=== PATIENT | female | born 1990 | race Caucasian/White ===

== ENCOUNTER → 2017-05-21 09:40 | Observation (INO) ==
[2017-05-20] MEDS: D5LR 1,000 ML IV SCH (15:30)
[2017-05-20 15:46] VITALS: O2SAT 100
--- NOTE | 2017-05-20 19:56 | Progress Note ---
DAY OF ADMISSION: 05/20/2017 HISTORY This is a 26-year-old white female at 7.3 weeks gestational age who was seen in the office this morning by Lara Raya APRN, and Dr. Arana for hyperemesis. She is a patient of mine, well known to me. She has been on Zofran, promethazine and Reglan for hyperemesis so far this and has been in for fluids at least a couple of times. She got 2 liters in the infusion therapy area. Then I went over to see her and she still was feeling bad. She has had diarrhea the last day or two and then stopped her stool softener. On further questioning, her partner had a fever yesterday. The patient's temperature is 99.3. Her cheeks were flushed and she just did not look like she felt well and it looked like more than hyperemesis to me. I put her in as an overnight observation and will continue IV fluids. I did lab work and her white count is normal at 9.6 but her neutrophils were slightly elevated at 84.6. Her blood chemistry was normal. I ordered a stool culture with the next diarrhea stool. I just saw her again this evening and she has not had an episode of that yet. She has been able to hold down a little bit of chicken soup and a few crackers. This evening we are going to switch her to IV with Dramamine in it for the overnight. She did not get any sleep last night which is unusual for her. I will continue the IV hydration with D5 to get some calories that way as well. I anticipate she will be able to get out of here tomorrow but I wanted to continue the hydration for a longer period of time than just two bags. Questions were answered to her satisfaction. LEAH
[2017-05-20 23:31] VITALS: PULSE 73
[2017-05-21] MEDS: D5LR 1,000 ML IV SCH (04:22)
[2017-05-21 08:02] VITALS: BP 115/69; RESP 16; TEMP 97.7
[~2017-05-21 09:40] MED LIST: DimenhyDRINATE 50 MG in D5LR 1,000 ML IV SCH; LEVETIRACETAM 250 MG TABLET PO SCH
== END | disposition home or self-care (01) ==
LOC: MC
PROVIDERS: ADMIT Obstetrics & Gynecology; ATTEND Obstetrics & Gynecology